=== PATIENT | female | born 1955 | race Caucasian/White ===

== ENCOUNTER → 2022-10-04 12:40 | Outpatient (CLI) | payer MEDICARE, OTHER, SELFPAY ==
--- NOTE | 2022-10-04 13:20 | DI.RAD_ITS ---
Exam(s) XR HIP LT COMPLETE AP PELVIS EXAM: XR HIP LT COMPLETE AP PELVIS CLINICAL HISTORY: LEFT HIP PAIN M25.552, ? FX HIP OR PELVIS. TECHNIQUE: 2D digital imaging was performed of the left hip. Three views were obtained. AP pelvis and lateral left hip views were obtained. COMPARISON: No exams were available for comparison FINDINGS: BONES: No acute fracture is present. No bony destructive lesion is seen. JOINTS: No dislocation present. There are mild degenerative changes of the left hip. SOFT TISSUE: Normal. IMPRESSION: 1. No acute abnormality. 2. Mild degenerative changes of the left hip. DATA REPOSITORY: RADIATION DOSE DELIVERED:
--- NOTE | 2022-10-04 13:20 | DI.RAD_ITS ---
Exam(s) XR LUMBAR SPINE COMPLETE EXAM: XR LUMBAR SPINE COMPLETE CLINICAL HISTORY: LEFT BACK PAIN M54.89EVALUATE JOINT SPACE ABNORMALITIES, ARTHRITIC CHANGES. TECHNIQUE: 2D digital imaging was performed of the lumbar spine. Five images were obtained. AP, la teral, right oblique, left oblique and L5-S1 spot views were obtained. COMPARISON: No exams were available for comparison FINDINGS: BONES: No fracture or destructive lesion. Small endplate osteophytes are seen at L1-L2. Mild degenera tive changes of the facets are seen in the lower lumbar spine. DISKS: There is mild disc space narrowing at L1-L2 and L4-L5. ALIGNMENT: There is a mild right convex curvature. There is grade 1 pseudo spondylolisthesis of L4 o n L5. SOFT TISSUE: There is a moderate amount of stool throughout the colon. IMPRESSION: 1. No acute abnormality. 2. Mild degenerative changes in the lumbar spine. DATA REPOSITORY: RADIATION DOSE DELIVERED:
--- NOTE | 2022-10-04 13:20 | DI.RAD_ITS ---
Exam(s) XR KNEE LT 3V AP,LAT,GERDA EXAM: XR KNEE LT 3V AP,LAT,GERDA CLINICAL HISTORY: LEFT KNEE PAIN M25.562 ? BONY ABNORMALITIES. TECHNIQUE: 2D digital imaging was performed of the left knee. Three images were obtained. AP, late ral and PA tunnel views were obtained. COMPARISON: No exams were available for comparison FINDINGS: BONES: No acute fracture is present. No bony destructive lesion is seen. JOINTS: The patient has a left total knee replacement without evidence of failure. No joint effusion is seen. SOFT TISSUE: Normal. IMPRESSION: No acute abnormality. DATA REPOSITORY: RADIATION DOSE DELIVERED:
== END ==
PROVIDERS: Visit Provider Physician Assistant Medical
DX: M47.816 Spondylosis without myelopathy or radiculopathy, lumbar region (principal); M25.562 Pain in left knee; M16.0 Bilateral primary osteoarthritis of hip
CPT/HCPCS: 73562; 72110; 73502

== ENCOUNTER → 2022-11-11 14:19 | Outpatient (BNVA) | payer MEDICARE, OTHER, SELFPAY | PROVIDERS: PCP Student in an Organized Health Care Education/Training Program; Visit Provider Student in an Organized Health Care Education/Training Program | DX: Z96.651 Presence of right artificial knee joint (principal); Z96.652 Presence of left artificial knee joint; M25.552 Pain in left hip; M43.16 Spondylolisthesis, lumbar region; R29.898 Other symptoms and signs involving the musculoskeletal system | CPT/HCPCS: 99203 ==

== ENCOUNTER 2022-11-20 01:16 | Outpatient (CLI) | payer MEDICARE, OTHER, SELFPAY ==
--- NOTE | 2022-11-20 07:30 | DI.MRI_ITS ---
Exam(s) MR LUMBAR SPINE WO EXAM: MR LUMBAR SPINE WO CLINICAL HISTORY: PAIN,lumbar radiculopathy,m54.16. TECHNIQUE: Multiplanar multisequence MRI of the Lumbar spine was performed. COMPARISON: CR XR HIP LT COMPLETE AP PELVIS from 10/04/2022 CR XR LUMBAR SPINE COMPLETE from 10/04/2022 FINDINGS: Bones: The last intervertebral disc space is designated the L5/S1 level for the numbering purpose of this examination. The vertebral body heights are well maintained. Alignment is satisfactory. The ma rrow signal characteristics are unremarkable. Cord: The conus tip ends at the T12 level. It is of normal size and signal intensity. T12-L1: No disc herniations or bulges are present. No central spinal canal or neural foraminal stenos is. L1-2: No disc herniations or bulges are present. No central spinal canal or neural foraminal stenosis . L2-3: Asymmetric loss of disc height eccentric toward the left. Minimal disc bulging. No central sp inal canal or neural foraminal stenosis. L3-4: Loss of disc height and endplate osteophytes eccentric toward the left. Density seen within th e left neural foramen which likely represents extruded disc material into the neural foramen for from the L3-4 disc. . No right neural foraminal narrowing. Facet degenerative changes and ligamentous hypertrophy are present causing moderate central canal stenosis. There is slight degenerative spondy lolisthesis.. L4-5: There is moderate loss of disc height and mild broad-based disc bulging. There are prominent f acet degenerative changes and ligamentous hypertrophy combining to produce severe central canal sten osis. There is also bilateral neural foraminal narrowing, moderate to severe. There is mild, grade 1 spondylolisthesis. L5-S1: No disc herniations or bulges are present. No central spinal canal or neural foraminal stenosi s. The visualized SI joints and sacrum are well maintained. Soft tissues: The paraspinal soft tissues are unremarkable. IMPRESSION: Extruded disc material within the left neural foramen at L3-4 likely rising from the L5 3 4 disc. Degenerative changes causing moderate central canal stenosis and neural foraminal narrowing at L3-4. Severe central canal stenosis and neural foraminal narrowing at L4-5. DATA REPOSITORY:
== END 2022-11-20 01:36 ==
LOC: DI 01:16
PROVIDERS: PCP Student in an Organized Health Care Education/Training Program; Visit Provider Student in an Organized Health Care Education/Training Program
DX: M54.59 Other low back pain (principal); M51.17 Intervertebral disc disorders with radiculopathy, lumbosacral region; M48.061 Spinal stenosis, lumbar region without neurogenic claudication
CPT/HCPCS: 72148

== ENCOUNTER 2023-06-03 07:34 | Emergency (ER) | payer MEDICARE, OTHER, SELFPAY ==
[2023-06-03 07:41] VITALS: BP 161/78; PULSE 81; RESP 16; TEMP 36.7; O2SAT 97
[2023-06-03 07:53] VITALS: RESP 16
--- NOTE | 2023-06-03 08:00 | DI.RAD_ITS ---
Exam(s) XR CHEST 2V PA LATERAL EXAM: XR CHEST 2V PA LATERAL CLINICAL HISTORY: Cough, URI TECHNIQUE: 2D digital imaging was performed of the chest. Two images were obtained. PA and lateral views were obtained. COMPARISON: No exams were available for comparison FINDINGS: MEDIASTINUM: Normal. HEART: Normal. PULMONARY VASCULATURE: Normal. LUNGS: Clear. PLEURAL SPACE: No pleural effusion or pneumothorax. BONE:Within normal limits for the patient's age. OTHER FINDINGS:Normal. IMPRESSION: No acute pulmonary findings. DATA REPOSITORY: RADIATION DOSE DELIVERED:
--- NOTE | 2023-06-03 08:00 | NUR.NOTE ---
Nursing Note: patient reports doing COVID test at home with negative results for all tests
--- NOTE | 2023-06-03 08:12 | ED.GENADUL_ITS ---
Discharge Plan Disposition Patient Disposition: Home Condition: Stable Discharge Details Clinical Impression: Pharyngitis Primary Care Provider: Jeanette Connell ED Provider: Clau Yarbrough Home Meds and New Rx's Prescriptions: New benzonatate 100 mg capsule 100 mg PO TID PRN (Reason: cough) Qty: 14 0RF Rx Instructions: Take 1 capsule up to 3 times daily as needed for cough prednisone 20 mg tablet 40 mg PO DAILY 5 Days Qty: 10 0RF Rx Instructions: Take 2 tablets by mouth for the next 5 days albuterol sulfate 90 mcg/actuation HFA aerosol inhaler 2 puff IH QID PRN (Reason: shortness of breath or wheezing) Qty: 8 0RF Rx Instructions: Take 1 to 2 puffs every 4-6 hours as needed for shortness of breath, cough or wheezing No Action fluoxetine 40 mg capsule 40 mg PO DAILY losartan 50 mg tablet 50 mg PO DAILY cholecalciferol (vitamin D3) [Vitamin D3] 50 mcg (2,000 unit) Capsule 2,000 unit PO DAILY Discharge Instructions Instructions: Pharyngitis (ED) Additional Instructions: The COVID flu and RSV swabs are negative. Chest x-ray shows no acute ab normality, no pneumonia. Your rapid strep swab is negative. The strep swab is sent for culture, we will call you if it is positive. Please take the medications as directed. An albuterol inhaler, Tessalon Perles or benzonatate capsules and prednisone was sent to the pharmacy we have on file for you. You may gargle with warm salt water up to 3 times daily. Coat the throat with raw dark honey and tea if needed. Follow up with primary care provider in 3-5 days. Return to ED sooner if any worsening or concerns. Increase oral fluids. Referrals: Jeanette Connell [Primary Care Provider] - Return if symptoms worsen Medical Decision Making 67 year old female presents to the ED with CC of bilateral ear pain, cough, sore throat and URI symptoms x 1 week. States she is having a hard time sleeping. Denies Chest pain or any other associated symptoms. Denies fever, chills, productive cough, but does endorse nausea. 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 She is speaking in full sentences, no muffled voice or hot potatoe voice. Differential diagnosis includes but not limited to strep throat, viral URI, viral pharyngitis, seasonal allergies, pneumonia. Strep swab, CXR and FLUVID ordered, Mitali choudhary. Rapid strep negative. CXR Negative for any acute findings. Patient given prescription for prednisone, Tessalon Perles and albuterol inhaler. Given information on home care, strict return instructions, and follow up care. This text was generated using Mintigoation system, please disregard any oddities of phrase or misspellings. Given instructions for pharyngitis. Imaging Data Radiologic Study: Imaging: X-Ray Radiologist's impression: XR CHEST 2V PA ? LATERAL EXAM:? XR CHEST 2V PA ? LATERAL CLINICAL HISTORY:? Cough, URI TECHNIQUE:? 2D digital imaging was performed of the chest.? Two images were obtained.? PA and lateral views were obtained. COMPARISON:? No exams were available for comparison FINDINGS: MEDIASTINUM: Normal.? HEART: Normal. PULMONARY VASCULATURE: Normal. LUNGS: Clear. ? PLEURAL SPACE: No pleural effusion or pneumothorax. BONE:Within normal limits for the patient's age.? OTHER FINDINGS:Normal.? IMPRESSION: No acute pulmonary findings. HPI General Mode of arrival: ambulatory . Date/Time Provider Initiated Documentation: 06/03/23 08:01 . Limitations to Documentation: no limitations . Information obtained by: patient, RN notes reviewed and old records reviewed . HPI Narrative: 67 year old female presents to the ED with CC of bilateral ear pain, cough, sore throat and URI symptoms x 1 week. States she is having a hard time sleeping. Denies Chest pain or any other associated symptoms. Denies fever, chills, productive cough, but does endorse nausea. 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 She is speaking in full sentences, no muffled voice or hot potatoe voice. Related Data Home Medications Medication Instructions Recorded Confirmed fluoxetine 40 mg capsule 40 mg PO DAILY 10/29/22 06/03/23 losartan 50 mg tablet 50 mg PO DAILY 10/29/22 06/03/23 albuterol sulfate 90 mcg/actuation 2 puff inhalation QID PRN 06/03/23 aerosol inhaler shortness of breath or wheezing #8 grams benzonatate 100 mg capsule 100 mg PO TID PRN cough #14 caps 06/03/23 cholecalciferol (vitamin D3) 50 2,000 unit PO DAILY 06/03/23 06/03/23 mcg (2,000 unit) capsule (Vitamin D3) prednisone 20 mg tablet 40 mg PO DAILY 5 days #10 tabs 06/03/23 Previous Rx's Medication Instructions Recorded albuterol sulfate 90 mcg/actuation 2 puff inhalation QID PRN 06/03/23 aerosol inhaler shortness of breath or wheezing #8 grams benzonatate 100 mg capsule 100 mg PO TID PRN cough #14 caps 06/03/23 prednisone 20 mg tablet 40 mg PO DAILY 5 days #10 tabs 06/03/23 Allergies Allergy/AdvReac Type Severity Reaction Status Date / Time No Known Allergies Allergy Verified 06/03/23 07:58 General Stated Complaint: GenMedical MACK: 4 Review of Systems All systems reviewed & are unremarkable except as noted in HPI and below Constitutional Constitutional: Reports as per HPI and Denies fever(s) ENT Ears, Nose, Mouth, and Throat: Reports as per HPI, Reports otalgia, Reports nasal congestion, Reports nasal discharge and Reports sore throat Cardiovascular Cardiovascular: Denies chest pain and Denies dyspnea Respiratory Respiratory: Reports chest congestion, Reports cough, Denies hemoptysis, Denies excessive phlegm production and Denies dyspnea Gastrointestinal Gastrointestinal: Reports nausea and Denies vomiting PFSH All Active Problems (Updated 06/03/23 @ 09:30 by Clau Yarbrough NP) Pharyngitis (Acute) Weakness of left lower extremity (Acute) Left hip pain (Acute) Spondylolisthesis, lumbar region (Acute) Medical History History of spondyloarthropathy Social History Smoking/Tobacco Use Status: Never Smoking risk assessment performed?: Yes Alcohol Intake: never Substance use type: does not use Housing: house Do you feel safe at home: Yes Do you feel safe in your relationship?: Yes Exam Const General: cooperative, healthy appearing, comfortable, well developed and well groomed Nutritional Appearance: average body habitus and well nourished Orientation: alert, awake and oriented x3 HENMT Head: normal to inspection and no palpable skull fracture Ears: hearing grossly normal bilaterally, external ears normal and TM abnormal retracted bilaterally; not erythematous General nose exam: external nose normal Mouth: oral mucosae normal, lip normal, tongue normal and moist mucous membranes Teeth and gingiva: dentition normal Throat: posterior oropharynx abnormal erythema and other (Small white blister left posterior oropharynx) Resp Effort & Inspection: normal respiratory effort and able to speak in complete sentences Auscultation: clear to auscultation bilaterally and rhonchi right lower Cardio Rate: regular rate Rhythm: regular rhythm Heart Sounds: S1 normal and S2 normal Course Vital Signs Vital signs: Vital Signs Temperature 36.7 C 06/03/23 07:41 Pulse 81 06/03/23 07:41 Respiratory Rate 16 06/03/23 07:41 Blood Pressure 161/78 H 06/03/23 07:41 Pulse Oximetry 97 06/03/23 07:41 Temperature 36.7 C 06/03/23 07:41 Pulse 81 06/03/23 07:41 Respiratory Rate 16 06/03/23 07:53 Respiratory Effort Normal, Non-Labored 06/03/23 07:56 Respiratory Depth Normal 06/03/23 07:53 Respiratory Pattern Normal 06/03/23 07:53 Blood Pressure 161/78 H 06/03/23 07:41 Pulse Oximetry 97 06/03/23 07:41
[2023-06-03] MEDS: Benzonatate 100 MG CAP PO (08:50)
[2023-06-03 09:08] LABS: COVID-19 PCR Negative (Negative); Influenza A PCR Negative (Negative); Influenza B PCR Negative (Negative); RSV PCR Negative (Negative)
[2023-06-03 09:20] LABS: Source Nasopharynx
[2023-06-03 09:35] VITALS: BP 149/66; PULSE 75; RESP 16; O2SAT 98
== END 2023-06-03 09:38 | disposition home or self-care (01) ==
PROVIDERS: Emergency Provider Registered Nurse Emergency; PCP Student in an Organized Health Care Education/Training Program
DX: J02.9 Acute pharyngitis, unspecified (principal); R05.9 Cough, unspecified; Z20.822 Contact with and (suspected) exposure to COVID-19
CPT/HCPCS: 87637; 87880; 99283; 71046; 87081